=== PATIENT | female | born 1970 ===

== ENCOUNTER 2025-07-15 10:52 | Emergency (ER) | payer SELFPAY ==
[~2025-07-15] VITALS: Ht 160 cm; Wt 77.7 kg
[2025-07-15 11:52] VITALS: BP 168/93; PULSE 78; RESP 18; TEMP 97.8; O2SAT 99
--- NOTE | 2025-07-15 12:20 | ED.PDOC ---
Musculoskeletal HPI Comments This is a 54 year old female presenting to the ED with chief complaint of knee pain. Patient reports that she has been experiencing right sided knee pain for the past week, however, yesterday she felt a pop in the knee and is now having increased pain with difficulty ambulating. Patient relays that her pain is to the back of her knee and while wearing a knee brace, she has some mild relief in pain. Patient denies any injury, fall, numbness, weakness, or tingling. Chief Complaint: Lower Extremity Time Seen by MD: 12:20 Reviewed Notes: Nurses Notes, Medications, Allergies Allergies: Coded Allergies: NO KNOWN ALLERGIES (Unverified , 07/15/25) Information Source: Patient Mode of Arrival: Ambulatory Location: Right Extremity Location: Knee Timing: Days Prehospital treatment: None Severity: Moderate Able to Move Extremity: Yes Bear Weight: Fully Pain: Moderate Mechanism: Spontaneous Circumstances: Spontaneous Onset of Symptoms: Spontaneous Symptoms: Pain DVT Risk Factors: NONE Last Tetanus: Unknown Associated signs and symptoms: Knee pain Past Medical History PAST MEDICAL HISTORY: Denies Surgical History: Denies all surgeries 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 [employer] PLANNING History Family History Family History: Reviewed,noncontributory to illness Social History Smoker: Non-Smoker Alcohol: Denies ETOH Use Drugs: Denies Drug Use Lives In: Home Constitutional: denies: chills, diaphoresis, fatigue, fever, malaise, sweats, weakness, others EENTM: denies: blurred vision, double vision, ear bleeding, ear discharge, ear drainage, ear pain, ear ringing, eye pain, eye redness, hearing loss, mouth pain, mouth swelling, nasal discharge, nose bleeding, nose congestion, nose pain, photophobia, tearing, throat pain, throat swelling, voice changes, others Respiratory: denies: cough, hemoptysis, orthopnea, SOB at rest, shortness of breath, SOB with excertion, stridor, wheezing, others Cardiovascular: denies: chest pain, dizzy spells, diaphoresis, Dyspnea on exertion, edema, irregular heart beat, left arm pain, lightheadedness, palpitations, PND, syncope, others Gastrointestinal: denies: abdomen distended, abdominal pain, blood streaked bowels, constipated, diarrhea, dysphagia, difficulty swallowing, hematemesis, melena, nausea, poor appetite, poor fluid intake, rectal bleeding, rectal pain, vomiting, others Genitourinary: denies: abnormal vagina bleeding, burning, dyspareunia, dysuria, flank pain, frequency, hematuria, incontinence, pain, , vagina discharge, urgency, others Neurological: denies: dizziness, fainting, headache, left sided numbness, left sided weakness, numbness, paresthesia, pre-existing deficit, right sided numbness, right sided weakness, seizure, speech problems, tingling, tremors, weakness, others Musculoskeletal: reports: others (Rt knee pain); denies: back pain, gout, joint pain, joint swelling, muscle pain, muscle stiffness, neck pain Integumetry: denies: bruises, change in color, change in hair/nails, dryness, laceration, lesions, lumps, rash, wounds, others Allergic/Immunocompromised: denies: Difficulty Healing, Frequent Infections, Hives, Itching, others Hematologic/Lymphatic: denies: anemia, blood clots, easy bleeding, easy bruising, swollen glands, others Endocrine: denies: excessive hunger, excessive sweating, excessive thirst, excessive urination, flushing, intolerance to cold, intolerance to heat, unexplained weight gain, unexplained weight loss, others Psychiatric: denies: anxiety, bipolar disorder, depression, hopeless, panic disorder, schizophrenia, sleepless, suicidal, others All Other Systems: Reviewed and Negative Physical Exam General Appearance: No Apparent Distress, Normal HEENT: Normal ENT Inspection, Pharynx Normal, TMs Normal Neck: Full Range of Motion, Non-Tender, Normal, Normal Inspection Respiratory: Chest Non-Tender, Lungs Clear, No Accessory Muscle Use, No Respiratory Distress, Normal Breath Sounds Cardiovascular: No Edema, No JVD, No Murmur, No Gallop, Normal Peripheral Pulses, Regular Rate/Rhythm Breast Exam: Deferred Gastrointestinal: No Organomegaly, Non Tender, No Pulsatile Mass, Normal Bowel Sounds, Soft Genitalia: Deferred Pelvic: Deferred Rectal: Deferred Extremities: No calf tenderness, Normal capillary refill, Normal inspection, Normal range of motion, Non-tender, No pedal edema Musculoskeletal : Location: Right Extremity Location: Knee Apperance: Normal, Tenderness Neurologic: Alert, records management analyst II-XII nml as Tested, No Motor Deficits, Normal Affect, Normal Mood, No Sensory Deficits Cerebellar Function: Normal Reflexes: Normal Skin: Dry, Normal Color, Warm Lymphatic: No Adenopathy Was a procedure done? Was a procedure done?: No Differential Diagnosis EXT Differential Diagnosis: Fracture, Sprain, Contusion, Strain, Arthritis X-Ray, Labs, Meds, VS Vital Signs Date Time Temp Pulse Resp B/P (MAP) Pulse Ox O2 Delivery O2 Flow Rate FiO2 07/15/25 11:52 97.8 78 18 168/93 (118) 99 97.8 07/15/25 10:53 97.8 81 18 163/97 97 97.8 [place] [id number] Ph: [phone] DIAGNOSTIC IMAGING Diagnostic Imaging Report : [id number] Signed PATIENT: CARLENE CROCKER ACCT: [id number] UNIT: [id number] : 1970 LOC: ER ROOM / BED: / AGE / SEX: 54 / F ADM STATUS: REG ER SERVICE 1154 ORDERING PHYSICIAN: DICK DAIGLE MD PROCEDURE(s): RKN3 - R KNEE 3V XRAY REASON: right knee pain ORDER NUMBER(s): [id number], ACCESSION NUMBER(s): [id number] CLINICAL INFORMATION: Right knee pain. TECHNIQUE: 3 views of the right knee were obtained. COMPARISON: None FINDINGS: No acute fracture or dislocation. Mild joint space narrowing of the medial and patellofemoral compartments. No focal soft tissue swelling. Small joint effusion. IMPRESSION: No evidence of acute bony abnormality. ATED BY: REG MYERS DO DICTATED DATE/TIME: 07/15/25 1230 SIGNED BY: REG MYERS DO SIGNED DATE/TIME: 07/15/25 1230 CC: Images Reviewed?: Images reviewed and evaluated by me Time of 1ST Reevaluation: 13:19 Reevaluation 1ST: Unchanged Patient Education/Counseling: Diagnosis, Treatment Family Education/Counseling: No Family Present Departure 1 Departure Time of Disposition: 12:36 (Patient with a knee sprain. Workup is otherwise benign. We will discharge patient home) Impression: Primary Impression: Right knee sprain Disposition: 01 HOME / SELF CARE / HOMELESS Condition: Stable Additional Instructions: You likely sprained her knee. You can Morris wrap your knee for comfort. You can apply ice as needed for swelling. You can take Tylenol and Motrin as needed for pain. You can use crutches as needed. You should follow up with our orthopedic surgeon within 1 week to ensure your he aling well. If your symptoms worsen, or you have any other concerns, then please return to the Emergency Room. Discharged With: Self Critical Care Note Critical Care Time?: No Stability Stability form required: No Heart Score Heart Score: Heart Score Response (Comments) Value History N/A 0 EKG N/A 0 Age N/A 0 Risk Factors N/A 0 Troponin N/A 0 Total 0 I personally scribed for DICK DAIGLE MD ([email or web address]) on 07/15/25 at 12:20. Electronically submitted by Erik Puente ([email or web address]). I personally scribed for DICK DAIGLE MD ([email or web address]) on 07/15/25 at 12:36. Electronically submitted by Erik Puente ([email or web address]). DICK DAIGLE MD Jul 15, 2025 12:20
--- NOTE | 2025-07-15 12:33 | DVH ---
CLINICAL INFORMATION: Right knee pain. TECHNIQUE: 3 views of the right knee were obtained. COMPARISON: None FINDINGS: No acute fracture or dislocation. Mild joint space narrowing of the medial and patellofemoral compartments. No focal soft tissue swelling. Small joint effusion. IMPRESSION: No evidence of acute bony abnormality.
[2025-07-15] MEDS: HYDROcodone-ACET 5/325MG TAB PO ONE (13:10)
== END 2025-07-15 13:47 | disposition home or self-care (01) ==
LOC: ER 10:52
DX: S83.91XA Sprain of unspecified site of right knee, initial encounter (principal); X58.XXXA Exposure to other specified factors, initial encounter; Y93.89 Activity, other specified; Y92.89 Other specified places as the place of occurrence of the external cause; Y99.8 Other external cause status
CPT/HCPCS: 73562